=== PATIENT | male | born 1970 | race Caucasian/White ===

== ENCOUNTER 2020-01-05 16:07 | Emergency (ER) | payer OTHER, SELFPAY ==
[2020-01-05 16:17] VITALS: BP 134/88; PULSE 70; RESP 17; TEMP 37.2; O2SAT 97; BMI 25.7
[2020-01-05 16:31] VITALS: BP 134/88; PULSE 75; RESP 14; O2SAT 100
--- NOTE | 2020-01-05 16:36 | PC.NURSE ---
pt states that he has had rectal bleeding 1x mid day and 1x early am. Diet changes since. has been eating more fast food lately.
--- NOTE | 2020-01-05 16:51 | DI.CT.S_ITS ---
PROCEDURE: CT ABDOMEN PELVIS W CON INDICATIONS: bilateral abd pain, GI bleed TECHNIQUE: After the administration of intravenous contrast, 5 mm thick sections acquired from the diaphragm to the symphysis. 5 mm coronal and sagittal reformats were acquired. For radiation dose reduction, the following was used: automated exposure control, adjustment of mA and/or kV according to patient size. COMPARISON: None. FINDINGS: Image quality: Excellent. ABDOMEN: Lung bases: Lung bases are clear. Heart size is normal. Solid organs: Liver is normal in size and enhancement. Apparent regional fatty liver infiltration can be seen. Gallbladder wall does not appear thickened. Biliary system is non dilated. Pancreas enhances normally. Spleen is normal in size and enhancement. No adrenal nodules. Kidneys demonstrate normal size and enhancement, without hydronephrosis. Peritoneum and bowel: Focal wall thickening with surrounding inflammatory change can be seen involving the splenic flexure and the proximal descending colon, with surrounding inflammatory change. No other areas of focal bowel thickening can be seen. No dilated loops of small bowel are seen. No free air or significant free fluid can be seen. Incidental note is made of a normal-appearing appendix. Nodes and vessels: No retroperitoneal or mesenteric adenopathy by size criteria. Aorta and inferior vena cava are normal in size. Miscellaneous: No ventral hernias. PELVIS: Genitourinary: Bladder wall thickness is normal. Miscellaneous: No enlarged inguinal or pelvic lymph nodes are seen. There is a fat-containing left inguinal hernia seen. Bones: No suspicious bony lesions. No vertebral body compression fractures. Focal L4-L5 degenerative change is seen. Milder degenerative changes are seen elsewhere. IMPRESSION: Focal colitis seen involving the splenic flexure and the proximal descending colon. Please correlate with potential infectious inflammatory causes. Ischemia is possible, yet considered to be less likely. Incidental note is made of: Likely regional fatty liver infiltration Normal appendix Focal L4-L5 degenerative change Fat containing left inguinal hernia Dictated by: Oh Pepper M.D. on 01/05/2020 at 16:36 Approved by: Oh Pepper M.D. on 01/05/2020 at 16:39
[2020-01-05 17:03] LABS: Prothrombin Time 11.4 SECONDS (10.1-12.7)
[2020-01-05 17:05] LABS: PTT Partial Thromboplastin Tim 27 SECONDS (26.4-36.2)
[2020-01-05 17:06] LABS: Add Manual Diff / Slide Review NO; Basophils Absolute Auto 100 /uL (0-100); Basophils Percent Auto 0.3 % (0-2); Eosinophils Absolute Auto 100 /uL (0-450); Eosinophils Percent Auto 0.5 % (2-4); Hemoglobin 15.6 g/dL (13.5-17.5); Lymphocytes Absolute Auto 2200 /uL (1100-4500); Lymphocytes Percent Auto 12.4 % (25-40); Mean Corpuscular HGB Conc 33.9 % (30-36); Mean Corpuscular Hemoglobin 30.5 PG (26-34); Monocytes Absolute Auto 1500 /uL (0-900); Monocytes Percent Auto 8.5 % (3-14); Neutrophils Absolute Auto 13600 /uL (1500-7000); Neutrophils Percent Auto 78.3 % (50-75); Platelet Count 272 X10^3/uL (150-400); Red Cell Distribution Width 13.1 % (11.6-14.8); White Blood Cell Count 17.4 X10^3/uL (4.5-11.0)
[2020-01-05 17:08] LABS: Alanine Aminotransferase 36 IU/L (<50); Albumin 4.6 g/dL (3.5-5.0); Albumin Globulin Ratio 1.3 (1.0-2.8); Alkaline Phosphatase 70 U/L (38-126); Aspartate Aminotransferase 41 IU/L (17-59); BUN Creatinine Ratio 16.7 (6-22); Bilirubin Total 0.9 mg/dL (0.2-1.3); Blood Urea Nitrogen 19 mg/dL (9-20); Calcium 9.2 mg/dL (8.4-10.2); Carbon Dioxide 28 mmol/L (22-32); Chloride 103 mmol/L (98-107); Estimated Glomerular Filt Rate > 60.0 mL/min (>60); Globulin 3.5 g/dL (1.7-4.1); Glucose 115 mg/dL (70-100); HEMOLYSIS < 15 (0-50); Lipase 44 U/L (23-300); Potassium 3.7 mmol/L (3.4-5.1); Sodium 139 mmol/L (137-145); Total Protein 8.1 g/dL (6.3-8.2)
[2020-01-05] MEDS: PANTOPRAZOLE 40 MG VIAL IV (17:13)
[2020-01-05] MEDS: ONDANSETRON 4 MG/2 ML INJ IV (17:13)
[2020-01-05 17:34] VITALS: BP 112/63; PULSE 67; O2SAT 98
--- NOTE | 2020-01-05 17:56 | ED_ITS ---
HPI - Abdominal Pain <[facility] - Last Filed: 01/05/20 18:56> General Chief Complaint: Abdominal Pain Stated Complaint: Cramps, Vomitting, Bloody Diarreha Time Seen by Provider: 01/05/20 16:41 Source: patient Mode of arrival: Ambulatory Limitations: no limitations History of Present Illness HPI narrative: This is a 49-year-old male, former smoker, who presents to ED with chief complain of lower abdominal pain which started at midnight emesis x2. Patient reports chills throughout the night and feeling clammy. Patient had loose stools and around noon he noticed bright red rectal bleeding. He noticed soak to toilet tissue with blood and small amount in toilet. Patient reports his pain is intermittent. Patient denies changes in his stool consistency, calibration. Patient denies fever. No colonoscopy in the past. Is not currently taking blood thinner or taking NSAIDS regularly. However, he had taken 400 mg of ibuprofen this morning for abdominal pain. Patient denies chest pain, dyspnea, dizziness. Patient denies foreign travel, recent antibiotic medication use, in contact with farm animals, or eating unusual food. Patient reports inguinal hernia repair in the past but denies other chronic illnesses. Related Data Previous Rx's Medication Instructions Recorded ondansetron 4 mg PO BID-TID PRN #7 tab 01/05/20 tramadol 50 mg PO Q8H PRN #7 tab 01/05/20 Review of Systems <Elmer Kasandra [facility] - Last Filed: 01/05/20 18:56> Review of Systems Narrative: General: Denies fever, (+) chills, fatigue, malaise, sweats. HEENT: Denies sinus pain, ear pain, sore throat, difficulty swallowing, dizziness. Respiratory: Denies dyspnea, cough, wheezing, hemoptysis, sputum. Cardiovascular: Denies chest pain, palpitations, orthopnea, edema. Gastrointestinal: See HPI : Denies dysuria, frequency, incontinence, hematuria, urinary retention. Musculoskeletal: Denies weakness, joint pain or bony pain. Skin: Denies rash, skin lesions, or other. Neurologic: Denies weakness, headache, numbness, change in speech, confusion, seizures, incoordination. Psychiatric: No concerning psychosocial issues. 12-point review of systems is negative except for those stated above. Patient History <Elmer BrowneBALJIT puri - Last Filed: 01/05/20 18:56> Medical History Inguinal hernia (Acute) Social History Smoking Status: Former smoker Smoking Status: Former smoker alcohol intake frequency: a few times a week Alcohol type: wine Substance Use Type: does not use Exam <Elmer AsherBALJIT Padilla - Last Filed: 01/05/20 18:56> Narrative Exam Narrative: GEN: Alert, oriented x 3, well appearing and nourished, and in no acute distress. Head: Normal cephalic, atraumatic. No scalp or temporal tenderness, palpable mass or rash. EYES: Pupils are equal, round, and reactive to light and accommodation. Extraocular muscles are intact bilaterally. There is no subconjunctival hemorrhage, exudate and sclera non-icteric, pink conjunctival. ENT: Hearing grossly intact. Nose without bleeding, purulent discharge. Mucous membrane moist, no mucosal lesion. Throat without erythema, tonsillar hypertrophy or exudate. Uvula in midline, airway patent. Neck: Trachea in midline. No JVD, non-tender without lymphadenopathy. No masses or thyroid megaly. Supple, non-tender and no meningeal signs. CARDIAC: Normal regular rate and rhythm without murmurs, gallops, or rubs. No chest wall tenderness. No peripheral edema, cyanosis or pallor. Capillary refill is less than 2 seconds. RESPIRATORY: Lungs are clear to auscultate bilaterally. No cough, wheezes, rales, or rhonchi. No stridor, respiratory distress, increase work of breathing, or accessary muscle used. ABD: Abdomen soft, non-distended. Tender to palpate in left upper and lower quadrant. No guarding or rebound tenderness to palpate. Bowel sounds are normal in all 4 quadrants. There is no palpable masses or organomegaly. EXT: Full painless ROM of all extremities with no loss of sensation, strength, effusion or edema. SKIN: Warm, dry, normal color for patient. No erythema, lesions or rash over visible areas. BACK: Nontender without deformity or crepitance. No flank tenderness. NEUROLOGICAL: Alert and oriented to place, time and person. Sensation and motor function intact bilaterally. No facial droops, dysphasia. PSYCHIATRIC: Good judgement and reason, without hallucinations, abnormal affect or abnormal behaviors during the examination. Initial Vital Signs Initial Vital Signs: Vital Signs Temperature 99.0 F 01/05/20 16:17 Pulse Rate 70 01/05/20 16:17 Respiratory Rate 17 01/05/20 16:17 Blood Pressure 134/88 01/05/20 16:17 Pulse Oximetry 97 01/05/20 16:17 <Ramiro Girard MD - Last Filed: 01/06/20 08:29> Initial Vital Signs Initial Vital Signs: Vital Signs Temperature 99.0 F 01/05/20 16:17 Pulse Rate 70 01/05/20 16:17 Respiratory Rate 17 01/05/20 16:17 Blood Pressure 134/88 01/05/20 16:17 Pulse Oximetry 97 01/05/20 16:17 Scores <BALJIT Brownlee - Last Filed: 01/05/20 18:56> GCS [place] coma scale eye opening: Spontaneous Era coma scale verbal response: Orientated Era coma scale motor response: Obey commands [place] coma scale total score: 15 Course <BALJIT Brownlee - Last Filed: 01/05/20 18:56> Orders Ordered: Discontinued Medications Ondansetron HCl (Zofran) 4 mg IV NOW ONE Stop: 01/05/20 16:52 Last Admin: 01/05/20 17:13 Dose: 4 mg Documented by: MISAEL Pantoprazole Sodium (Protonix) 40 mg IV NOW ONE Stop: 01/05/20 16:52 Last Admin: 01/05/20 17:13 Dose: 40 mg Documented by: MISAEL Consultations Consultation #1: Dr. Malone with physical finding, lab and CT results. It was recommended no antibiotic medication is required at this time and strict return precautions. Time: 18:30 Vital Signs Vital signs: Vital Signs - 8 hr 01/05/20 16:17 01/05/20 16:31 01/05/20 17:34 Temperature 99.0 F Pulse Rate 70 75 67 Respiratory Rate 17 14 Blood Pressure 134/88 Blood Pressure [Left Arm] 134/88 112/63 Pulse Oximetry 97 100 98 01/05/20 18:45 Temperature Pulse Rate 62 Respiratory Rate 20 Blood Pressure Blood Pressure [Left Arm] 120/66 Pulse Oximetry 100 <Ramiro Girard MD - Last Filed: 01/06/20 08:29> Orders Ordered: Discontinued Medications Ondansetron HCl (Zofran) 4 mg IV NOW ONE Stop: 01/05/20 16:52 Last Admin: 01/05/20 17:13 Dose: 4 mg Documented by: MISAEL Pantoprazole Sodium (Protonix) 40 mg IV NOW ONE Stop: 01/05/20 16:52 Last Admin: 01/05/20 17:13 Dose: 40 mg Documented by: MISAEL Vital Signs Vital signs: Vital Signs - 8 hr 01/05/20 16:17 01/05/20 16:31 01/05/20 17:34 Temperature 99.0 F Pulse Rate 70 75 67 Respiratory Rate 17 14 Blood Pressure 134/88 Blood Pressure [Left Arm] 134/88 112/63 Pulse Oximetry 97 100 98 01/05/20 18:45 Temperature Pulse Rate 62 Respiratory Rate 20 Blood Pressure Blood Pressure [Left Arm] 120/66 Pulse Oximetry 100 MDM - Abdominal Pain <BALJIT Brownlee - Last Filed: 01/05/20 18:56> Differential Diagnosis Differential diagnosis: Likely abdominal pain, diverticulitis, small bowel obstruction and other (rectal bleeding, hemorrhoids,) Medical Records Attestation: I reviewed the patient's medical records. Lab Data Attestation: I reviewed the patient's lab results. Result diagrams: 01/05/20 16:25 01/05/20 16:25 Labs: Lab Results 01/05/20 01/05/20 01/05/20 Range/Units 16:25 16:25 16:25 WBC 17.4 H (4.5-11.0) X10^3/uL RBC 5.10 (4.5-5.9) X10^6/uL Hgb 15.6 (13.5-17.5) g/dL Hct 46.0 (41-53) % MCV 90.0 (80-100) fL MCH 30.5 (26-34) PG MCHC 33.9 (30-36) % RDW 13.1 (11.6-14.8) % Plt Count 272 (150-400) X10^3/uL Neut % (Auto) 78.3 H (50-75) % Lymph % (Auto) 12.4 L (25-40) % [place] % (Auto) 8.5 (3-14) % Eos % (Auto) 0.5 L (2-4) % Baso % (Auto) 0.3 (0-2) % Neut # (Auto) 34058 H (7913-5520) /uL Lymph # (Auto) 2200 (5091-7754) /uL [place] # (Auto) 1500 H (0-900) /uL Eos # (Auto) 100 (0-450) /uL Baso # (Auto) 100 (0-100) /uL PT 11.4 (10.1-12.7) SECONDS INR 1.0 (0.9-1.3) APTT 27 (26.4-36.2) SECONDS Sodium 139 (137-145) mmol/L Potassium 3.7 (3.4-5.1) mmol/L Chloride 103 (98-107) mmol/L Carbon Dioxide 28 (22-32) mmol/L BUN 19 (9-20) mg/dL Creatinine 1.14 (0.66-1.25) mg/dL Estimated GFR > 60.0 (>60) mL/min BUN/Creatinine Ratio 16.7 (6-22) Glucose 115 H (70-100) mg/dL Lactate (0.7-2.1) mmol/L Calcium 9.2 (8.4-10.2) mg/dL Total Bilirubin 0.9 (0.2-1.3) mg/dL AST 41 (17-59) IU/L ALT 36 (<50) IU/L Alkaline Phosphatase 70 (38-126) U/L Total Protein 8.1 (6.3-8.2) g/dL Albumin 4.6 (3.5-5.0) g/dL Globulin 3.5 (1.7-4.1) g/dL Albumin/Globulin Ratio 1.3 (1.0-2.8) Lipase 44 (23-300) U/L Procalcitonin (<0.5) ng/mL Blood Type Antibody Screen 01/05/20 01/05/20 01/05/20 Range/Units 16:55 18:02 18:02 WBC (4.5-11.0) X10^3/uL RBC (4.5-5.9) X10^6/uL Hgb (13.5-17.5) g/dL Hct (41-53) % MCV (80-100) fL MCH (26-34) PG MCHC (30-36) % RDW (11.6-14.8) % Plt Count (150-400) X10^3/uL Neut % (Auto) (50-75) % Lymph % (Auto) (25-40) % [place] % (Auto) (3-14) % Eos % (Auto) (2-4) % Baso % (Auto) (0-2) % Neut # (Auto) (5387-2921) /uL Lymph # (Auto) (0931-2576) /uL [place] # (Auto) (0-900) /uL Eos # (Auto) (0-450) /uL Baso # (Auto) (0-100) /uL PT (10.1-12.7) SECONDS INR (0.9-1.3) APTT (26.4-36.2) SECONDS Sodium (137-145) mmol/L Potassium (3.4-5.1) mmol/L Chloride (98-107) mmol/L Carbon Dioxide (22-32) mmol/L BUN (9-20) mg/dL Creatinine (0.66-1.25) mg/dL Estimated GFR (>60) mL/min BUN/Creatinine Ratio (6-22) Glucose (70-100) mg/dL Lactate 0.9 (0.7-2.1) mmol/L Calcium (8.4-10.2) mg/dL Total Bilirubin (0.2-1.3) mg/dL AST (17-59) IU/L ALT (<50) IU/L Alkaline Phosphatase (38-126) U/L Total Protein (6.3-8.2) g/dL Albumin (3.5-5.0) g/dL Globulin (1.7-4.1) g/dL Albumin/Globulin Ratio (1.0-2.8) Lipase (23-300) U/L Procalcitonin 0.10 (<0.5) ng/mL Blood Type A Positive Antibody Screen Negative Point of care testing: Point of Care Testing Stool Occult Blood Positive Imaging Data CT scan - abdomen/pelvis: Radiologist's Impression: [address] [address] [address] Scan Report Signed Patient: Sae Blanca [facility]#: [id number] : 1970Acct:[id number] Age/Sex: 49 / MDate of Service: 01/05/20 Loc: ED Accession Number: [id number] Procedure: CT abdomen pelvis w con Ordering Provider: Elmer Slaughter PROCEDURE: CT ABDOMEN PELVIS W CON INDICATIONS: bilateral abd pain, GI bleed TECHNIQUE: After the administration of intravenous contrast, 5 mm thick sections acquired from the diaphragm to the symphysis. 5 mm coronal and sagittal reformats were acquired. For radiation dose reduction, the following was used: automated exposure control, adjustment of mA and/or kV according to patient size. COMPARISON: None. FINDINGS: Image quality: Excellent. ABDOMEN: Lung bases: Lung bases are clear. Heart size is normal. Solid organs: Liver is normal in size and enhancement. Apparent regional fatty liver infiltration can be seen. Gallbladder wall does not appear thickened. Biliary system is non dilated. Pancreas enhances normally. Spleen is normal in size and enhancement. No adrenal nodules. Kidneys demonstrate normal size and enhancement, without hydronephrosis. Peritoneum and bowel: Focal wall thickening with surrounding inflammatory change can be seen involving the splenic flexure and the proximal descending colon, with surrounding inflammatory change. No other areas of focal bowel thickening can be seen. No dilated loops of small bowel are seen. No free air or significant free fluid can be seen. Incidental note is made of a normal-appearing appendix. Nodes and vessels: No retroperitoneal or mesenteric adenopathy by size criteria. Aorta and inferior vena cava are normal in size. Miscellaneous: No ventral hernias. PELVIS: Genitourinary: Bladder wall thickness is normal. Miscellaneous: No enlarged inguinal or pelvic lymph nodes are seen. There is a fat-containing left inguinal hernia seen. Bones: No suspicious bony lesions. No vertebral body compression fractures. Focal L4-L5 degenerative change is seen. Milder degenerative changes are seen elsewhere. IMPRESSION: Focal colitis seen involving the splenic flexure and the proximal descending colon. Please correlate with potential infectious inflammatory causes. Ischemia is possible, yet considered to be less likely. Incidental note is made of: Likely regional fatty liver infiltration Normal appendix Focal L4-L5 degenerative change Fat containing left inguinal hernia Dictated by: Oh Pepper M.D. on 01/05/2020 at 16:36 Approved by: Oh Pepper M.D. on 01/05/2020 at 16:39 MDM Narrative Medical decision making narrative: This is a 49-year-old male who presents to ED with left quadrant abdominal pain which started at midnight this morning with bright red rectal bleeding at 1:00 p.m. today. Patient denies chest pain, breathing difficulty or dizziness but reports chills. Patient has not had colonoscopy in the past. Abdomen was soft, nondistended but tender to palpate in left quadrant. Patient is afebrile in ED with within normal vital signs. Patient is not on anticoagulants, recent antibiotic medication use, foreign travel. There is leukocytosis and WBC was 17.4 with elevated neutrophil. Within normal lactate and procalcitonin. Unremarkable CMP. H&H is stable as 15.6/46. Normal coag test. Abdominal CT indicates focal colitis involving splenic flexure and proximal descending colon were patient is having discomfort. Dr. Malone was consulted and he recommended monitoring for his symptoms at this time since patient has stable H&H. Was not recommended to use antibiotic medication for his symptoms. In the near future patient probably needs colonoscopy and to follow-up with [facility]. I appreciate his consultation. Strict return precautions were discussed with the patient and findings. Patient verbalized understanding and in agreement with the treatment plan. <Ramiro Girard MD - Last Filed: 01/06/20 08:29> Lab Data Labs: Lab Results 01/05/20 01/05/20 01/05/20 Range/Units 16:25 16:25 16:25 WBC 17.4 H (4.5-11.0) X10^3/uL RBC 5.10 (4.5-5.9) X10^6/uL Hgb 15.6 (13.5-17.5) g/dL Hct 46.0 (41-53) % MCV 90.0 (80-100) fL MCH 30.5 (26-34) PG MCHC 33.9 (30-36) % RDW 13.1 (11.6-14.8) % Plt Count 272 (150-400) X10^3/uL Neut % (Auto) 78.3 H (50-75) % Lymph % (Auto) 12.4 L (25-40) % [place] % (Auto) 8.5 (3-14) % Eos % (Auto) 0.5 L (2-4) % Baso % (Auto) 0.3 (0-2) % Neut # (Auto) 11525 H (7872-6745) /uL Lymph # (Auto) 2200 (3185-9508) /uL [place] # (Auto) 1500 H (0-900) /uL Eos # (Auto) 100 (0-450) /uL Baso # (Auto) 100 (0-100) /uL PT 11.4 (10.1-12.7) SECONDS INR 1.0 (0.9-1.3) APTT 27 (26.4-36.2) SECONDS Sodium 139 (137-145) mmol/L Potassium 3.7 (3.4-5.1) mmol/L Chloride 103 (98-107) mmol/L Carbon Dioxide 28 (22-32) mmol/L BUN 19 (9-20) mg/dL Creatinine 1.14 (0.66-1.25) mg/dL Estimated GFR > 60.0 (>60) mL/min BUN/Creatinine Ratio 16.7 (6-22) Glucose 115 H (70-100) mg/dL Lactate (0.7-2.1) mmol/L Calcium 9.2 (8.4-10.2) mg/dL Total Bilirubin 0.9 (0.2-1.3) mg/dL AST 41 (17-59) IU/L ALT 36 (<50) IU/L Alkaline Phosphatase 70 (38-126) U/L Total Protein 8.1 (6.3-8.2) g/dL Albumin 4.6 (3.5-5.0) g/dL Globulin 3.5 (1.7-4.1) g/dL Albumin/Globulin Ratio 1.3 (1.0-2.8) Lipase 44 (23-300) U/L Procalcitonin (<0.5) ng/mL Blood Type Antibody Screen 01/05/20 01/05/20 01/05/20 Range/Units 16:55 18:02 18:02 WBC (4.5-11.0) X10^3/uL RBC (4.5-5.9) X10^6/uL Hgb (13.5-17.5) g/dL Hct (41-53) % MCV (80-100) fL MCH (26-34) PG MCHC (30-36) % RDW (11.6-14.8) % Plt Count (150-400) X10^3/uL Neut % (Auto) (50-75) % Lymph % (Auto) (25-40) % [place] % (Auto) (3-14) % Eos % (Auto) (2-4) % Baso % (Auto) (0-2) % Neut # (Auto) (0200-3491) /uL Lymph # (Auto) (5717-2709) /uL [place] # (Auto) (0-900) /uL Eos # (Auto) (0-450) /uL Baso # (Auto) (0-100) /uL PT (10.1-12.7) SECONDS INR (0.9-1.3) APTT (26.4-36.2) SECONDS Sodium (137-145) mmol/L Potassium (3.4-5.1) mmol/L Chloride (98-107) mmol/L Carbon Dioxide (22-32) mmol/L BUN (9-20) mg/dL Creatinine (0.66-1.25) mg/dL Estimated GFR (>60) mL/min BUN/Creatinine Ratio (6-22) Glucose (70-100) mg/dL Lactate 0.9 (0.7-2.1) mmol/L Calcium (8.4-10.2) mg/dL Total Bilirubin (0.2-1.3) mg/dL AST (17-59) IU/L ALT (<50) IU/L Alkaline Phosphatase (38-126) U/L Total Protein (6.3-8.2) g/dL Albumin (3.5-5.0) g/dL Globulin (1.7-4.1) g/dL Albumin/Globulin Ratio (1.0-2.8) Lipase (23-300) U/L Procalcitonin 0.10 (<0.5) ng/mL Blood Type A Positive Antibody Screen Negative Point of care testing: Point of Care Testing Stool Occult Blood Positive Discharge Plan Departure Patient Disposition: Home Clinical Impression: Colitis Abdominal pain Qualifiers: Abdominal location: unspecified location Qualified Code(s): R10.9 - Unspecified abdominal pain Discharge Date/Time: 01/05/20 18:56 Instructions: DI for Abdominal Pain-Adult, DI for Colitis Activity Restrictions/Additional Instructions: You have been diagnosed with [left quadrant pain and colitis. Increase in WBC indicating inflammation/infection with stable blood counts. Hemoglobin and hematocrit levels are within normal of 15.6 and 46. Chemistry test was unremarkable with normal procalcitonin and lactate. CT test of abdomen and pelvis indicates focal colitis seen involving the splenic flexure and proximal descending colon. Your unable to provide stool sample at this time.]. What to do: *Take your medications as directed. Please take [id number] Tylenol 650- 1000 mg as needed for pain up to 3 to 4 times a day. Zofran as needed for nausea so you can hydrate adequately. Tramadol for severe pain since this is narcotic pain medication. Please do not drive, drink alcohol, operate heavy equipments while your taking this medication. It can cause constipation so please take precautions. Zofran has been transmitted to [facility]. *Follow up with your primary care provider in 2-3 days, call for an appointment. Please follow-up with Dr. Malone at [facility]. You may need colonoscopy in the near future. Let them know you were seen in the ED and that we asked you to be seen in follow up. *Return to ED if you have any new, worsening, or concerning symptoms, such as [chest pain, breathing difficulty, unable to tolerate fluids, fever, increased bleeding rectally or in vomit, feeling like faint, increasing pain, or any acute concerns]. Prescriptions: New ondansetron 4 mg tablet,disintegrating 4 mg PO BID-TID PRN (Reason: nausea and vomiting) Qty: 7 RF: 0 tramadol 50 mg tablet 50 mg PO Q8H PRN (Reason: pain) Qty: 7 RF: 0 Referrals: [facility] [Outside] Bill Malone MD [Physician] -
--- NOTE | 2020-01-05 18:13 | PC.NURSE ---
Does not have to poop.
[2020-01-05 18:22] LABS: Lactate (Lactic Acid) 0.9 mmol/L (0.7-2.1)
[2020-01-05 18:45] VITALS: BP 120/66; PULSE 62; RESP 20; O2SAT 100
== END 2020-01-05 18:56 | disposition home or self-care (01) ==
PROVIDERS: Emergency Provider Nurse Practitioner Family
DX: K52.9 Noninfective gastroenteritis and colitis, unspecified (principal); R10.9 Unspecified abdominal pain; K62.5 Hemorrhage of anus and rectum; R11.10 Vomiting, unspecified
CPT/HCPCS: 36415; 74177; 80053; 82272; 83605; 83690; 84145; 85025; 85610; 85730; 86850; 86900; 86901; 96374; 96375; 99284; C9113; J2405

== ENCOUNTER → 2021-12-02 10:04 | Outpatient (CLI) | payer OTHER, SELFPAY ==
[2021-12-02 13:16] LABS: COVID19 -Nasal RAPID Negative (Negative)
== END ==
PROVIDERS: Visit Provider Family Medicine Sleep Medicine
DX: Z20.822 Contact with and (suspected) exposure to COVID-19 (principal)
CPT/HCPCS: 87635; C9803

== ENCOUNTER 2021-12-05 11:10 | Day surgery (SDC) | payer OTHER, SELFPAY ==
--- NOTE | 2021-12-05 | PATH_ITS ---
[facility] Accession Number: [id number] . 01 Material submitted: . colon - DESCENDING COLON POLYP . 02 Diagnosis: Descending Colon Polyp: Tubular adenoma. MRV 12/07/2021 1453 Local . 02 Electronically signed: . Trinidad Fowler MD, Pathologist NPI- [id number] . 01 Gross description: . DESCENDING COLON POLYP: Received in formalin is 1 fragment(s) of crystal, soft tissue measuring 0.4 x 0.3 x 0.1 cm submitted entirely in 1 cassette(s) /TRC 12/06/2021 1517 Local . 02 Pathologist provided ICD-10: Z12.11, K63.5 . 02 CPT . 218600 Specimen Comment: A courtesy copy of this report has been sent to [facility] Pathology Performed at: 01 [facility] [address] [id number] MD Ramy Chaudhari MD Phone: [phone] Performed at: 02 [facility] [address] [place], [place] [id number] MD Ashley Casper MD Phone: [phone]
[2021-12-05 11:29] VITALS: BP 101/69; PULSE 55; RESP 16; TEMP 36.2; O2SAT 97; BMI 25.7
[2021-12-05] MEDS: SODIUM CHLORIDE 0.9% 1,000 ML 84 ML IV (11:39)
--- NOTE | 2021-12-05 13:03 | PM.HP.1 ---
History of Present Illness History of Present Illness Date Patient Seen: 12/05/21 Time Patient Seen: 13:03 Chief complaint: SDC Narrative: Here for colon cancer screening. Patient History Medical History Inguinal hernia Family & Social History Social History: household members spouse Tobacco & Substance use: Smoking Status Former smoker alcohol intake current alcohol intake frequency a few times a week Substance Use Type does not use Meds Home Medications and Allergies Allergies Allergy/AdvReac Type Severity Reaction Status Date / Time Penicillins Allergy Mild Verified 12/02/21 14:19 Review of Systems Review of Systems ROS: Yes All systems reviewed with the patient and are negative except as otherwise documented Exam Vital Signs (past 8 hours): - 12/05/21 11:29 Temperature 97.1 F L Pulse Rate 55 L Respiratory Rate 16 Blood Pressure 101/69 Pulse Oximetry 97 Oxygen Delivery Method Room Air Const General: cooperative and comfortable Orientation: alert HENMT Head: normocephalic Ears: external ears normal Nose: external nose normal Face and sinus: normal facial exam Mouth: oral mucosae normal Eyes General: appearance normal, both eyes and all related structures Neck Neck: normal visual inspection Chest Chest: normal inspection of the chest Resp Effort & Inspection: normal respiratory effort Cardio Rate: regular rate GI Inspection: normal to inspection Skin General: no rashes or lesions noted and No jaundice Neuro General: patient alert and moves all extremities Cognition: normal cognition Speech: speech normal Extrem General: no pedal edema Psych Appearance: grossly normal Assessment & Plan Assessment & Plan narrative: 51-year-old male indicated for colon cancer screening. Colonoscopy is planned for today. Time Spent With Patient Critical Care time: I spent a total of [] minutes of critical care time on this patient's care today; this time is exclusive of procedural time.
--- NOTE | 2021-12-05 13:05 | PM.PREOP ---
Pre-operative Note COVID-19 COVID-19 status: Negative Result date/Date tested (Pos, Neg/Pending): 12/02/21 Criteria for continued procedure: Possibility delay results in more complex future surgery or treatment Interval Note History & Physical reviewed/Exam performed by Physician: Yes Changes to H&P: No ASA Class (for procedural sedation): I
--- NOTE | 2021-12-05 13:29 | P.OP.COLON_ITS ---
Operative Date/Time/Diagnoses Date of procedure: 12/05/21 Time of procedure: 13:29 Pre-op diagnosis: Colon cancer screening Post-op diagnosis: same Procedure & Clinicians Study performed: Colonoscopy with cold snare polypectomy Same procedure as scheduled: Yes Indications: Colon cancer screening Surgeon: Kishor Valdez Procedure Notes SCOAP/Timeout: Done Procedure in detail: After the risks and benefits were explained, written and verbal informed consent was obtained. The patient was brought into the procedure room and placed into the left lateral decubitus position. Please see nurse educational technician notes for sedation details. Digital rectal examination was accomplished. The scope was introduced into the patient and advanced under direct visualization to the cecum as identified by the appendiceal orifice and ileocecal valve. The scope was slowly withdrawn to carefully examine the mucosa for any defects or lesions. Comprehensive imaging was accomplished throughout the rectum including the dentate line. The colon was decompressed, the scope was then removed from the patient who tolerated the procedure well. Bowel prep adequate Adult colonoscope Scope withdrawal time: 10 minutes Sedation minutes: 19 Complications: none Impression: Patient had a sessile 6 mm polyp in the descending colon removed with cold snare. No additional mucosal pathology was appreciated throughout. Endoscopic diagnosis Small colon polyp Post-procedure Plan for aftercare: 1. Await histopathology 2. Repeat colonoscopy 7 years if this polyp is found to be adenomatous. Disposition: PACU
[2021-12-05 13:31] VITALS: BP 84/48; PULSE 56; RESP 14; TEMP 36.8; O2SAT 95
[2021-12-05 13:36] VITALS: BP 80/48; PULSE 61; RESP 14; O2SAT 96
[2021-12-05 13:42] VITALS: BP 83/54; PULSE 64; RESP 12; O2SAT 96
[2021-12-05 13:45] VITALS: BP 98/63; PULSE 69; RESP 14; TEMP 36.8; O2SAT 100
[2021-12-05 14:05] VITALS: BP 108/88; PULSE 56; RESP 16; TEMP 36.4; O2SAT 97
== END 2021-12-05 14:16 | disposition home or self-care (01) ==
PROVIDERS: PCP Family Medicine; Referring Provider Internal Medicine Gastroenterology; Visit Provider Internal Medicine Gastroenterology
PROC: 0DJD8ZZ Inspection of Lower Intestinal Tract, Via Natural or Artificial Opening Endoscopic (ICD-10-PCS; CPT 45378; principal; 2021-12-05 12:30)
DX: Z12.11 Encounter for screening for malignant neoplasm of colon (principal); D12.4 Benign neoplasm of descending colon
CPT/HCPCS: 45385; J2704